=== PATIENT | female | born 1955 | race Caucasian/White ===

== ENCOUNTER 2018-08-10 14:10 | Emergency (ER) | payer SELFPAY ==
[~2018-08-10] VITALS: Ht 160 cm; Wt 98.9 kg
[2018-08-10] MEDS ORDERED: COREG6.25 MG PO (14:22)
[2018-08-10] MEDS ORDERED: GABAPENTIN300 MG PO (14:22)
[2018-08-10] MEDS ORDERED: FUROSEMIDE20 MG PO (14:23)
[2018-08-10] MEDS ORDERED: K-TAB ER20 MEQ PO (14:23)
[2018-08-10] MEDS ORDERED: MAGNESIUM500 MG PO (14:23)
[2018-08-10] MEDS ORDERED: ASPIRIN81 MG PO (14:23)
[2018-08-10] MEDS ORDERED: AMITRIPTYLINE H50 MG PO (14:24)
[2018-08-10] MEDS ORDERED: ULTRAM50 MG PO (14:25)
[2018-08-10] MEDS ORDERED: RANITIDINE HCL75 MG PO (14:25)
[2018-08-10] MEDS ORDERED: NORCO 5-325 TA1 EACH PO (14:26)
== END 2018-08-10 14:33 | disposition home or self-care (01) ==
LOC: ED 14:10
DX: M79.671 Pain in right foot (principal)